=== PATIENT | female | born 1975 | race Caucasian/White ===

== ENCOUNTER 2020-08-27 20:17 | Emergency (ER) | payer OTHER ==
[~2020-08-27] VITALS: Ht 167.6 cm; Wt 68.0 kg
--- NOTE | 2020-08-27 20:34 | NUR ---
Patient states she had COVID 6 months ago, came in with c/o shortness of breath x 2 weeks, worse at night. Patient is ambulatory, no labored breathing at this time, no audible wheezing. No c/o chest pain/pressure, no visible edema on extremities. No GI/ distress. Bed in lowest position, educated on safety precautions, verbalized understanding.
--- NOTE | 2020-08-27 20:40 | NUR ---
Dr. Thompson at bedside, MSE in progress in room 3
--- NOTE | 2020-08-27 20:53 | NUR ---
chest x-ray at bedside
[2020-08-27 21:15] LABS: HEMATOCRIT 38.8 % (31.2-41.9); MEAN CORPUSCULAR HEMOGLOBIN 29.3 uug (24.7-32.8); MEAN CORPUSCULAR VOLUME 86.2 fL (75.5-95.3); PLATELET COUNT (AUTO) 199 K/uL (179-408)
[2020-08-27 21:17] LABS: CREATININE 0.9 mg/dL (0.6-1.3); POTASSIUM 3.9 mmol/L (3.5-5.1)
[2020-08-27] MEDS ORDERED: IOHEXOL 350 100 ML INFUS..BTL ONE (22:34)
[2020-08-27] MEDS ORDERED: IV NORMAL SALINE 250 ML IV ONE (22:34)
[2020-08-27] MEDS ORDERED: SWABABLE VALVE TRANSFER SET EA MC ONE (22:34)
--- NOTE | 2020-08-27 22:40 | NUR ---
Patient being taken down for CT.
--- NOTE | 2020-08-27 22:57 | NUR ---
Pt came back from CT, stable condition.
[2020-08-28] MEDS ORDERED: LORA-259 PO
--- NOTE | 2020-08-28 00:15 | NUR ---
Patient discharged to home in stable condition. Written and verbal after care instructions given. A/O x4, no SOB or labored breathing, afebrile. No c/o pain or discomfort. Accompanied by daughter. Steady gait.Patient verbalizes understanding of instructions. Stressed follow up or return to ER for worsening s/s.
[2020-08-28 00:45] VITALS: BP 132/70
== END 2020-08-28 00:20 | disposition home or self-care (01) ==
LOC: ER 20:22
DX: F41.9 Anxiety disorder, unspecified (principal); Z86.16 Personal history of COVID-19; R06.00 Dyspnea, unspecified; Z79.899 Other long term (current) drug therapy
CPT/HCPCS: 36415; 71045; 71275; 80048; 83880; 84484; 85025; 85379; 93005; 99285; Q9967; 70030-TC; A4663; J7050